=== PATIENT | female | born 1980 | race Two or more races ===

== ENCOUNTER 2024-07-29 09:46 | Inpatient (IN) | payer OTHER ==
[~2024-07-29] VITALS: Ht 160 cm; Wt 67.1 kg
[2024-07-29] MEDS ORDERED: CEFAZOLIN SODIUM 1,000 MG VIAL IV ONE (10:00)
[2024-07-29] MEDS ORDERED: 0.9 % SODIUM CHLORIDE 1,000 ML IV ONE (10:00)
[2024-07-29] MEDS ORDERED: ACETAMINOPHEN 325 MG TABLET PO ONE (10:00)
[2024-07-29] MEDS ORDERED: FAMOtidine 10 MG/ML (4ML VIAL) IV ONE (10:00)
[2024-07-29] MEDS ORDERED: ONDANSETRON HCL 2 MG/ML VIAL IV ONE (11:15)
[2024-07-29] MEDS ORDERED: KETOROLAC TROMETHAMINE 60 MG VIAL IM ONE (11:15)
[2024-07-29 12:09] LABS: INR 1.05; PARTIAL THROMBOPLASTIN TIME 28.6 SECONDS (22.0-34.0); PROTHROMBIN TIME 11.4 SECONDS (9.0-11.5)
[2024-07-29 12:11] LABS: HEMATOCRIT 36.3 % (36.0-45.00); HEMOGLOBIN 12.1 g/dL (12.0-15.00); MEAN CELL VOLUME 87.2 fL (80.00-100.00); MEAN CORPUSCULAR HGB CONC 33.3 g/dl (32.0-36.0); PLATELET COUNT 189 K/uL (150-450); RED BLOOD COUNT 4.17 M/uL (4.00-6.00); RED CELL DISTRIBUTION WIDTH 14.6 % (11.5-14.5)
[2024-07-29 12:14] LABS: ERYTHROCYTE SEDIMENTATION RATE 27 mm/hr
[2024-07-29 12:40] LABS: ALBUMIN 3.5 gm/dL (3.4-5.0); BILIRUBIN TOTAL 0.73 mg/dL (0.3-1.2); CALCIUM 8.6 mg/dL (8.5-10.1); CREATININE SERUM 0.79 mg/dL (0.55-1.02); GFR 80.2; GLOBULINA 3.7 G/DL (2.4-3.5); POTASSIUM 3.41 mEq/L (3.5-5.1); TOTAL PROTEIN 7.2 gm/dL (6.4-8.2)
[2024-07-29 12:52] LABS: C-REACTIVE PROTEIN 11.7 MG/DL (0.00-0.29)
[2024-07-29] MEDS ORDERED: DOXYCYCLINE HYCLATE 100MG IV SCH (14:31)
[2024-07-29 14:35] LABS: URINE APPEARANCE Turbid; URINE BILIRRUBIN Negative (NEGATIVE); URINE BLOOD Moderate; URINE COLOR Yellow; URINE GLUCOSE Negative (NEGATIVE); URINE KETONE 15 (NEGATIVE); URINE LEUKOCYTE Large; URINE NITRATE Positive; URINE UROBILINOGEN 0.2 E.U./dl
[2024-07-29 14:36] LABS: URINE BACTERIA 546.8 uL (0.0-1933); URINE EPITHELIAL CELLS 4.4 uL (0.0-38.8); URINE RBC 20.1 uL (0.0-20.8)
[2024-07-29 14:42] LABS: URINE CAST 1.06 uL (0.0-1.40); URINE PROTEIN 100 (NEGATIVE)
[2024-07-29] MEDS ORDERED: 0.9 % SODIUM CHLORIDE 1,000 ML IV SCH (18:45)
[2024-07-29] MEDS ORDERED: PIPERACILLIN/TAZOBACTAM SODIUM 3.375 GM in 0.9 % SODIUM CHLORIDE 100 ML IV SCH (18:48)
[2024-07-29] MEDS ORDERED: FAMOTIDINE/PF 20 MG in 0.9 % SODIUM CHLORIDE 8 ML IV PUSH SCH (18:48)
[2024-07-29] MEDS ORDERED: MEPERIDINE HCL/PF 25 MG/ML VIAL IM SCH (18:49)
[2024-07-29] MEDS ORDERED: ACETAMINOPHEN 500 MG GEL..CAP PO PRN (19:00)
[2024-07-29] MEDS ORDERED: ENALAPRILAT DIHYDRATE 1.25 MG/ML VIAL IV PRN (19:00)
[2024-07-29] MEDS ORDERED: ONDANSETRON HCL 4 MG in DEXTROSE 5 % IN WATER 50 ML IV PRN (19:00)
[2024-07-29] MEDS ORDERED: CELECOXIB 200 MG CAPSULE PO STA (19:45)
[2024-07-29] MEDS ORDERED: ACETAMINOPHEN 500 MG GEL..CAP PO SCH (19:45)
[2024-07-29] MEDS ORDERED: ACETAMINOPHEN 500 MG GEL..CAP PO STA (19:45)
[2024-07-29] MEDS ORDERED: MEPERIDINE HCL/PF 25 MG/ML VIAL IM PRN (19:46)
[2024-07-29 20:09] LABS: LDH 111 U/L (84-246); PHOSPHOKINASE CREATININE 50 U/L (26-192)
[2024-07-29] MEDS ORDERED: CELECOXIB 200 MG CAPSULE PO SCH (21:00)
[2024-07-29 22:55] VITALS: BP 85/42; O2SAT 97
[2024-07-30] VITALS: BP 90/53; O2SAT 99
[2024-07-30 04:54] LABS: LDH 116 U/L (84-246)
[2024-07-30 05:23] LABS: PHOSPHOKINASE CREATININE 50 U/L (26-192)
[2024-07-30 06:32] LABS: ABG PH 7.463 (7.35-7.45); ABG PO2 75.3 mmHg (80-100); ABG pCO2 33.6 mmHg (35-45); BASE EXCESS 0.4 mmol/l; BICARBONATE 23.5 mmol/l (23-25); SaO2 95.8 %; Tco2 24.5 mmol/l; allen test SATISFACTORY; o2 21 %; puncture site RADIAL LEFT
[2024-07-30 08:17] VITALS: BP 103/44; O2SAT 98
[2024-07-30 08:19] LABS: PH,URINE 5.5 (5.0-8.0); URINE APPEARANCE Cloudy; URINE BILIRRUBIN Negative (NEGATIVE); URINE BLOOD Moderate; URINE COLOR Dark Yellow; URINE GLUCOSE Negative (NEGATIVE); URINE KETONE Trace (NEGATIVE); URINE LEUKOCYTE Small; URINE NITRATE Negative; URINE UROBILINOGEN 0.2 E.U./dl
[2024-07-30 08:23] LABS: URINE EPITHELIAL CELLS 21.4 uL (0.0-38.8); URINE RBC 71.3 uL (0.0-20.8); URINE WBC 1521.8 uL (0.0-23.2)
[2024-07-30] MEDS ORDERED: CEFTRIAXONE SODIUM 1,000 MG VIAL IV SCH (09:00)
[2024-07-30] MEDS ORDERED: ENOXAPARIN SODIUM 40 MG/0.4 ML SYRINGE SUBCUTANEO SCH (09:00)
[2024-07-30 09:39] LABS: URINE CAST 1.06 uL (0.0-1.40); URINE PROTEIN 100 (NEGATIVE)
[2024-07-30 11:54] LABS: HEMATOCRIT 32.3 % (36.0-45.00); HEMOGLOBIN 10.7 g/dL (12.0-15.00); MEAN CELL VOLUME 87.4 fL (80.00-100.00); MEAN CORPUSCULAR HEMOGLOBIN 28.8 pg (27.00-32.0); PLATELET COUNT 136 K/uL (150-450); RED CELL DISTRIBUTION WIDTH 14.8 % (11.5-14.5)
[2024-07-30 12:12] LABS: INR 1.25; PARTIAL THROMBOPLASTIN TIME 35.6 SECONDS (22.0-34.0); PROTHROMBIN TIME 13.4 SECONDS (9.0-11.5)
[2024-07-30 12:18] LABS: LDH 119 U/L (84-246); PHOSPHOKINASE CREATININE 47 U/L (26-192)
[2024-07-30 13:30] LABS: ALBUMIN 2.7 gm/dL (3.4-5.0); BILIRUBIN TOTAL 0.6 mg/dL (0.3-1.2); BILIRUBIN,CONJUGATED 0.31 mg/dL (0.0-0.2); BILIRUBIN,UNCONJUGATED 0.29 mg/dL (0.0-0.6); CALCIUM 7.8 mg/dL (8.5-10.1); CHOL HDL RATIO 3.9 (0-5.0); CREATININE SERUM 0.79 mg/dL (0.55-1.02); GFR 80.2; GLOBULINA 3.1 G/DL (2.4-3.5); POTASSIUM 3.42 mEq/L (3.5-5.1); TOTAL PROTEIN 5.8 gm/dL (6.4-8.2)
[2024-07-30 13:34] LABS: C-REACTIVE PROTEIN 37.3 MG/DL (0.00-0.29)
[2024-07-30 15:52] VITALS: BP 93/44; O2SAT 98
[2024-07-30] MEDS ORDERED: METROnidazole 70 GM GEL.W.APPL VAG SCH (23:02)
[2024-07-31] VITALS: BP 94/51; O2SAT 100
[2024-07-31 07:15] LABS: HEMATOCRIT 29.6 % (36.0-45.00); HEMOGLOBIN 10.1 g/dL (12.0-15.00); MEAN CELL VOLUME 86.8 fL (80.00-100.00); MEAN CORPUSCULAR HEMOGLOBIN 29.6 pg (27.00-32.0); MEAN CORPUSCULAR HGB CONC 34.1 g/dl (32.0-36.0); RED CELL DISTRIBUTION WIDTH 15.2 % (11.5-14.5)
[2024-07-31 07:20] LABS: PLATELET COUNT 113 K/uL (150-450)
[2024-07-31 08:15] LABS: ALBUMIN 2.5 gm/dL (3.4-5.0); BILIRUBIN TOTAL 0.46 mg/dL (0.3-1.2); CREATININE SERUM 0.55 mg/dL (0.55-1.02); GFR 121.8; GLOBULINA 2.8 G/DL (2.4-3.5); POTASSIUM 3.5 mEq/L (3.5-5.1); TOTAL PROTEIN 5.3 gm/dL (6.4-8.2)
[2024-07-31 08:49] VITALS: BP 91/53; O2SAT 98
[2024-07-31] MEDS ORDERED: METROnidazole 70 GM GEL.W.APPL VAG SCH (09:42)
[2024-07-31 16:10] VITALS: BP 107/54; O2SAT 99
[2024-07-31] MEDS ORDERED: ONDANSETRON HCL 4 MG in DEXTROSE 5 % IN WATER 50 ML IV PRN (17:04)
[2024-07-31] MEDS ORDERED: MORPHINE SULFATE 4 MG/ML CARTRIDGE IV PRN (17:15)
[2024-07-31 17:20] LABS: PH,URINE 6.5 (5.0-8.0); URINE APPEARANCE Cloudy; URINE BILIRRUBIN Negative (NEGATIVE); URINE BLOOD Moderate; URINE COLOR Yellow; URINE GLUCOSE Negative (NEGATIVE); URINE KETONE Trace (NEGATIVE); URINE LEUKOCYTE Small; URINE NITRATE Negative; URINE PROTEIN 30 (NEGATIVE)
[2024-07-31 17:22] LABS: URINE BACTERIA 45.3 uL (0.0-1933); URINE EPITHELIAL CELLS 18.2 uL (0.0-38.8); URINE RBC 257.4 uL (0.0-20.8); URINE WBC 183.6 uL (0.0-23.2)
[2024-07-31 17:42] LABS: URINE CAST 0.15 uL (0.0-1.40)
[2024-07-31] MEDS ORDERED: Cyanocobalamin/Mecobalamin 1 TAB.SL SL NR (18:00)
[2024-07-31] MEDS ORDERED: SOD FERRIC GLUC COMPLX/SUCROSE 62.5 MG/5 ML AMPUL IV NR (18:00)
[2024-07-31] MEDS ORDERED: FOLIC ACID 1 MG TABLET PO NR (18:00)
[2024-07-31 20:21] VITALS: O2SAT 87
[2024-08-01] VITALS (7 sets, daily range): BP systolic 105–119; BP diastolic 62–73; O2SAT 90–97
[2024-08-01 06:33] LABS: HEMATOCRIT 27.9 % (36.0-45.00); HEMOGLOBIN 9.4 g/dL (12.0-15.00); MEAN CELL VOLUME 87.7 fL (80.00-100.00); MEAN CORPUSCULAR HEMOGLOBIN 29.4 pg (27.00-32.0); MEAN CORPUSCULAR HGB CONC 33.5 g/dl (32.0-36.0); PLATELET COUNT 138 K/uL (150-450); RED BLOOD COUNT 3.19 M/uL (4.00-6.00)
[2024-08-01] MEDS ORDERED: POLYETHYLENE GLYCOL 3350 17 GM BLIST.PACK PO NR (10:50)
[2024-08-01] MEDS ORDERED: HYOSCYAMINE SULFATE 0.125 MG TAB.SUBL SL PRN (11:30)
[2024-08-01] MEDS ORDERED: Cyanocobalamin/Mecobalamin 1 TAB.SL SL SCH (17:00)
[2024-08-01] MEDS ORDERED: SOD FERRIC GLUC COMPLX/SUCROSE 62.5 MG in 0.9 % SODIUM CHLORIDE 50 ML IV SCH (17:00)
[2024-08-01] MEDS ORDERED: FOLIC ACID 1 MG TABLET PO SCH (17:00)
[2024-08-02 01:13] VITALS: BP 105/57; O2SAT 95
[2024-08-02 03:07] VITALS: O2SAT 86
[2024-08-02 07:47] LABS: HEMATOCRIT 26.7 % (36.0-45.00); HEMOGLOBIN 9.3 g/dL (12.0-15.00); MEAN CELL VOLUME 85.7 fL (80.00-100.00); MEAN CORPUSCULAR HEMOGLOBIN 29.8 pg (27.00-32.0); MEAN CORPUSCULAR HGB CONC 34.8 g/dl (32.0-36.0); PLATELET COUNT 153 K/uL (150-450); RED BLOOD COUNT 3.12 M/uL (4.00-6.00); RED CELL DISTRIBUTION WIDTH 15.1 % (11.5-14.5)
[2024-08-02 08:51] VITALS: BP 117/57; O2SAT 100
[2024-08-02] MEDS ORDERED: POLYETHYLENE GLYCOL 3350 17 GM BLIST.PACK PO SCH (09:00)
[2024-08-02] MEDS ORDERED: CEFTRIAXONE SODIUM 2,000 MG VIAL IV SCH (09:00)
[2024-08-02 09:45] VITALS: O2SAT 90
[2024-08-02 16:00] VITALS: BP 111/73; O2SAT 98
== END 2024-08-02 18:03 | disposition home or self-care (01) | DRG 690 ==
LOC: EDBD 09:48 → ER 09:48 → SEC-K 19:20 → SURG 19:20
PROVIDERS: General Practice; Student in an Organized Health Care Education/Training Program; Surgery; ADMIT Obstetrics & Gynecology Gynecology; ATTEND Obstetrics & Gynecology Gynecology
PROC: BW21ZZZ Computerized Tomography (CT Scan) of Abdomen and Pelvis (ICD-10-PCS; principal; 2024-07-29)
PROC: 4A12X4Z Monitoring of Cardiac Electrical Activity, External Approach (ICD-10-PCS; 2024-07-30)
DX: N39.0 Urinary tract infection, site not specified (principal); Z96.0 Presence of urogenital implants; Z20.822 Contact with and (suspected) exposure to COVID-19; D64.9 Anemia, unspecified; D72.829 Elevated white blood cell count, unspecified